=== PATIENT | male | born 1980 | race Caucasian/White ===

== ENCOUNTER 2025-06-20 08:55 | Outpatient (CLI) | payer MEDICARE | END 2025-06-20 08:56 | disposition home or self-care (01) | LOC: CSHWCC 08:55 | PROVIDERS: ATTEND Nurse Practitioner Family | DX: I87.332 Chronic venous hypertension (idiopathic) with ulcer and inflammation of left lower extremity (principal); E11.622 Type 2 diabetes mellitus with other skin ulcer; L97.821 Non-pressure chronic ulcer of other part of left lower leg limited to breakdown of skin; G35 Multiple sclerosis | CPT/HCPCS: 11042 ==

== ENCOUNTER 2025-06-27 09:35 | Outpatient (CLI) | payer MEDICARE | END 2025-06-27 09:36 | disposition home or self-care (01) | LOC: CSHWCC 09:35 | PROVIDERS: ATTEND Nurse Practitioner Family | DX: I87.332 Chronic venous hypertension (idiopathic) with ulcer and inflammation of left lower extremity (principal); E11.622 Type 2 diabetes mellitus with other skin ulcer; L97.821 Non-pressure chronic ulcer of other part of left lower leg limited to breakdown of skin; G35 Multiple sclerosis | CPT/HCPCS: 11042 ==

== ENCOUNTER 2025-07-03 09:48 | Outpatient (CLI) | payer MEDICARE | END 2025-07-03 09:49 | disposition home or self-care (01) | LOC: CSHWCC 09:48 | PROVIDERS: ATTEND Nurse Practitioner Family | DX: I87.332 Chronic venous hypertension (idiopathic) with ulcer and inflammation of left lower extremity (principal); E11.622 Type 2 diabetes mellitus with other skin ulcer; L97.821 Non-pressure chronic ulcer of other part of left lower leg limited to breakdown of skin; G35 Multiple sclerosis | CPT/HCPCS: 99213; G0463 ==

== ENCOUNTER 2025-07-18 09:45 | Outpatient (CLI) | payer MEDICARE | END 2025-07-18 09:46 | disposition home or self-care (01) | LOC: CSHWCC 09:45 | PROVIDERS: ATTEND Nurse Practitioner Family | DX: I87.332 Chronic venous hypertension (idiopathic) with ulcer and inflammation of left lower extremity (principal); E11.622 Type 2 diabetes mellitus with other skin ulcer; L97.821 Non-pressure chronic ulcer of other part of left lower leg limited to breakdown of skin; G35 Multiple sclerosis | CPT/HCPCS: 99212; G0463 ==

== ENCOUNTER 2025-07-25 10:04 | Outpatient (CLI) | payer MEDICARE | END 2025-07-25 10:05 | disposition home or self-care (01) | LOC: CSHWCC 10:04 | PROVIDERS: ATTEND Nurse Practitioner Family | DX: S81.812D Laceration without foreign body, left lower leg, subsequent encounter (principal); I87.332 Chronic venous hypertension (idiopathic) with ulcer and inflammation of left lower extremity; E11.622 Type 2 diabetes mellitus with other skin ulcer; L98.499 Non-pressure chronic ulcer of skin of other sites with unspecified severity | CPT/HCPCS: 99212; G0463 ==